=== PATIENT | female | born 1960 | race African-American/Black ===

== ENCOUNTER → 2017-12-20 | Outpatient (CLI) | payer OTHER ==
[~2017-12-20] MED LIST: BUTACAP2 PO; CIPR500T2 PO; FERR325T PO; LORA10TA7 PO
--- NOTE | 2017-12-23 10:23 | RSPPFT ---
DATE OF PROCEDURE: 12/20/17 COMMENTS: Spirometry with FVC of 2.3 predicted 2.8, FEV1 of 1.9 predicted 2.3, FEV1/FVC ratio at 84% predicted 84. Lung volumes are basically within the predicted range. DLCO is 64% of predicted but within the predicted range when corrected for alveolar volume. IMPRESSION:
== END ==
LOC: HRSP 08:09
PROVIDERS: ATTEND Internal Medicine Pulmonary Disease
DX: D86.9 Sarcoidosis, unspecified (principal)
CPT/HCPCS: 94060; 94618; 94726; 94729